=== PATIENT | male | born 1995 | race Hispanic/Latino ===

== ENCOUNTER 2019-06-27 23:47 | Inpatient (IN) | payer SELFPAY ==
[2019-06-27] MEDS ORDERED: Ketamine 50 MG/ML (10ML VIAL) ONE (23:52)
[2019-06-28] MEDS ORDERED: Sodium Bicarb 50 MEQ/50 ML VIAL ONE (00:19)
[2019-06-28 00:31] LABS: #Lymphocytes 1.3 thou/uL (1.20-3.40); #Monocytes 0.5 thou/uL (0.11-0.59); #Neutrophils 11.9 thou/uL (1.40-6.50); %Basophils 0.3 % (0.0-1.0); %Eosinophils 0.2 % (0.0-10.0); %Lymphocytes 9.1 % (21.0-51.0); %Monocytes 3.8 % (0.0-10.0); %Neutrophils 86.7 % (42.0-75.0); Hemoglobin 14.7 g/dL (14.0-18.0); Mean Corpuscular HGB CONC 34.7 g/dL (32.0-36.0); Mean Corpuscular Hemoglobin 32.2 pg (27.0-31.0); Mean Corpuscular Volume 92.8 fL (78.0-98.0); Mean Platelet Volume 8.6 fL (7.4-10.4); Platelet Count 292 thou/uL (130-400); RBC Distribution Width 11.8 % (11.5-14.5); Red Blood Cell (RBC) Count 4.55 mill/uL (4.70-6.10); White Blood Cell (WBC) Count 13.8 thou/uL (4.8-10.8)
[2019-06-28 00:50] LABS: Acetaminophen Less than 6.0 mcg/mL (10.0-30.0); Alcohol Less than 10 mg/dL (Less than 10); CK (CPK) 197 U/L (30-200); Magnesium 1.9 mg/dL (1.6-2.6); Salicylate Less than 8.0 mg/dL (15.0-30.0)
[2019-06-28 00:51] LABS: ALT (SGPT) 36 U/L (8-55); AST (SGOT) 16 U/L (5-34); Albumin 4.1 g/dL (3.5-5.0); Alkaline Phosphatase 57 U/L (40-110); Anion Gap 10 mmol/L (10-20); BUN (Urea Nitrogen) 17 mg/dL (8.9-20.6); Bilirubin, Total 0.4 mg/dL (0.2-1.2); Calc. Creatinine Clearance 0 mL/min (70-130); Calcium 8.2 mg/dL (7.8-10.44); Carbon Dioxide 26 mmol/L (22-29); Chloride 109 mmol/L (98-107); Estimated GFR-MDRD Greater than 90; Globulin 2.3 g/dL (2.4-3.5); Glucose 98 mg/dL (70-105); Lipase 14 U/L (8-78); Protein, Total 6.4 g/dL (6.0-8.3); Sodium 141 mmol/L (136-145)
[2019-06-28 00:56] LABS: Bilirubin Negative (Negative); Blood, Urine Negative (Negative); Clarity Clear (Clear); Glucose, Urine (Dipstick) Normal (Negative); Leukocyte Negative Leu/uL (Negative); Nitrite Negative (Negative); Protein, Urine (Dipstick) Negative (Neg-Trace); Urobilinogen Normal mg/dL (Less than 2)
[2019-06-28 01:04] LABS: Medtox Reader # READER 4; Phencyclidine (PCP) Not Detected (NotDetected); THC/Cannabinoid Screen Not Detected (NotDetected)
[2019-06-28 01:05] LABS: Amphetamine Not Detected (NotDetected); Barbiturates Screen Not Detected (NotDetected); Benzodiazepine Screen Not Detected (NotDetected); Cocaine Metabolite Screen Detected (NotDetected); Medtox Control Line Valid? VALID (VALID); Methadone Not Detected (NotDetected); Methamphetamine Not Detected (NotDetected); Opiate Screen Not Detected (NotDetected); Oxycodone Screen Not Detected (NotDetected); Tricyclic Screen Detected (NotDetected)
[2019-06-28 01:19] LABS: CKMB 5.1 ng/mL (0-6.6)
[2019-06-28] MEDS ORDERED: Aspirin 300 MG Suppository ONE (01:42)
[2019-06-28 03:13] VITALS: BMI 34.0
[2019-06-28] MEDS ORDERED: Acetaminophen 650 MG Suppository PR PRN (03:29)
[2019-06-28] MEDS ORDERED: Acetaminophen 325 MG TAB PO PRN (03:29)
[2019-06-28] MEDS ORDERED: Bisacodyl 5 MG TAB PO PRN (03:29)
--- NOTE | 2019-06-28 04:02 | HP ---
PRIMARY CARE PROVIDER: Unknown, city call. CHIEF COMPLAINT: Overdose. HISTORY OF PRESENT ILLNESS: Mr. Jaden Junior is a 24-year-old gentleman, who was seen at [facility] on June 28, 2019. He is currently unable to provide any significant history. Collateral history was obtained from review of medical records and discussion with emergency room physician. The patient reportedly got into an argument at home and swallowed an unknown number of amitriptyline tablets. The patient was combative in the emergency room and received ketamine. He is currently lethargic, waking up, but falling asleep. He was also found to have an abnormal troponin level and positive urine drug screen for tricyclics and cocaine metabolites. REVIEW OF SYSTEMS: Could not be completed. PAST MEDICAL HISTORY: None. PAST SURGICAL HISTORY: None. SOCIAL HISTORY: Emergency room physician reports that the patient drinks alcohol on a social basis and is a former drug user. No details regarding tobacco use. FAMILY HISTORY: Could not be obtained. ALLERGIES: NO KNOWN DRUG ALLERGIES. CURRENT MEDICATIONS: None. PHYSICAL EXAMINATION: GENERAL: On examination, Mr. Jaden Junior is sleepy, but arousable, not in acute distress. VITAL SIGNS: Blood pressure is 102/74, pulse 112, respiratory rate 16, and oxygen saturation 97% on room air. He is afebrile. He is obese, with a BMI of 34. HEENT: Eyes, no scleral icterus, no conjunctival pallor. ENT: Moist mucosal membranes. NECK: Supple, nontender, trachea is midline. RESPIRATORY: Accessory muscles of breathing are not active. Chest wall movements are symmetric bilaterally. LUNGS: Clear to auscultation without wheeze, rhonchi, or crepitations. CARDIOVASCULAR: S1 and S2 are heard, regular. Peripheral pulses palpable. ABDOMEN: Soft, nontender, bowel sounds are heard. NEUROLOGIC: Full neurologic examination was not possible secondary to patient's noncooperation. No facial droop. Deep tendon reflexes 2+. MUSCULOSKELETAL: The patient is moving all 4 extremities. SKIN: No rashes. LYMPHATIC: No cervical lymphadenopathy. PSYCHIATRIC: Unable to assess mood, affect, or orientation to person, place, or time. LABORATORY DATA: Mr. Jaden Junior's labs and investigations were reviewed. 12-lead electrocardiogram shows sinus tachycardia, QRS duration is [address] scan of the brain did not show any acute intracranial abnormality. He has mild paranasal sinus mucosal changes without air-fluid levels. Chest x-ray does not show any pulmonary infiltrates. He has leukocytosis with 13,800 white cells, of which 86.7% are neutrophils. Hemoglobin and platelet count are normal. Sodium and potassium are normal. LFTs are unremarkable. Creatinine is normal. CK and TSH are normal. Magnesium is normal. Ammonia level is normal. Troponin I is in the indeterminate range at 0.188. Urinalysis is positive for ketones, negative for nitrite and leukocyte esterase. Urine toxicology screen is positive for tricyclics and cocaine metabolites. ASSESSMENT AND PLAN: Mr. Stanley is a 24-year-old gentleman, who was seen at [facility] on June 28, 2019. His problem list includes: 1. Drug overdose: Mr. Jaden Junior has overdosed on amitriptyline. [facility] Control [facility] has been notified by emergency room. He received sodium bicarbonate intravenously with improvement in QRS interval. He will be admitted to monitoring specialist and continued on intravenous fluids. Further management depending on how he does over the next few hours. 2. Elevated troponin: Etiology is unclear, could be related to cocaine use. We will recheck a troponin level. 3. Cocaine use: The patient to be counseled regarding recreational drug cessation when more awake. LEVEL OF RISK: Moderate. LEVEL OF COMPLEXITY: Moderate. Job ID: [id number]
[2019-06-28] MEDS: Sodium Chloride 0.9% 1,000 ML IV SCH ×3 (04:03→23:08)
[2019-06-28 06:20] LABS: #Basophils 0.1 thou/uL (0.0-0.2); #Eosinphils 0.1 thou/uL (0.0-0.7); #Lymphocytes 1.9 thou/uL (1.20-3.40); #Monocytes 0.7 thou/uL (0.11-0.59); #Neutrophils 10.4 thou/uL (1.40-6.50); %Basophils 0.5 % (0.0-1.0); %Eosinophils 0.5 % (0.0-10.0); %Lymphocytes 14.3 % (21.0-51.0); %Monocytes 5.5 % (0.0-10.0); %Neutrophils 79.2 % (42.0-75.0); Hemoglobin 14.9 g/dL (14.0-18.0); Mean Corpuscular HGB CONC 33.4 g/dL (32.0-36.0); Mean Corpuscular Hemoglobin 30.9 pg (27.0-31.0); Mean Corpuscular Volume 92.2 fL (78.0-98.0); Mean Platelet Volume 8.7 fL (7.4-10.4); Platelet Count 285 thou/uL (130-400); RBC Distribution Width 11.8 % (11.5-14.5); Red Blood Cell (RBC) Count 4.84 mill/uL (4.70-6.10); White Blood Cell (WBC) Count 13.1 thou/uL (4.8-10.8)
[2019-06-28 06:36] LABS: Anion Gap 11 mmol/L (10-20); BUN (Urea Nitrogen) 13 mg/dL (8.9-20.6); Calc. Creatinine Clearance 217 mL/min (70-130); Calcium 8.4 mg/dL (7.8-10.44); Carbon Dioxide 25 mmol/L (22-29); Chloride 111 mmol/L (98-107); Estimated GFR-MDRD Greater than 90; Glucose 109 mg/dL (70-105); Potassium 3.9 mmol/L (3.5-5.1); Sodium 143 mmol/L (136-145)
[2019-06-28 06:43] LABS: Troponin I 0.195 ng/mL (< 0.028)
--- NOTE | 2019-06-28 07:38 | RAD ---
EXAM: Single view of the chest HISTORY: Altered mental status COMPARISON: None FINDINGS: Single view of the chest shows a normal sized cardiomediastinal silhouette. Linear atelect asis is seen in the right lung base. There is no evidence of consolidation, mass, or pleural effusion. The bones are unremarkable. IMPRESSION: No evidence of acute cardiopulmonary disease
--- NOTE | 2019-06-28 08:06 | CT ---
PRELIMINARY REPORT/[facility]/EMERGENCY AFTER HOURS PROCEDURE: CT BRAIN WO CON History: M24 presents to ED for overdose, 15 mins prior to EMS arrival. EMS reports pt was at [place], was smoking marijuana, got into argument, then might have intentionally overdosed. Unsure but believe pt took Amitriptyline; EMS reports bottle was still 3/4 full, maybe took about 10 Comparison: None. Findings: Reyes-white interface is preserved throughout. No sulcal effacement. No evidence of intracranial hemorrhage, mass effect or midline shift. No hydrocephalus or extra-axial fluid collection. Calvarium intact. No focal scalp hematoma. Orbits and mastoid air cells are unremarkable. Mild adenoidal tissue prominence. Trace mucosal thickening in the maxillary and ethmoid sinuses. No air-fluid levels. Impression: 1. No acute intracranial abnormality identified. 2. Mild paranasal sinus mucosal changes without air-fluid levels. ELECTRONICALLY SIGNED BY: Liu Hui DO Jun 28, 2019 1:07:52 AM CONCRETE INSPECTOR This report is intended for review by the ordering physician only, in accordance of law. If you recei ve this report in error, please call [facility] at [phone]. FINAL REPORT EMERGENT AFTER HOURS CT OF THE BRAIN WITHOUT CONTRAST: FINDINGS/IMPRESSION: I agree with the findings and impression given in the preliminary report per [facility] physici an. No evidence of acute intracranial abnormality. POS: [facility] [place]
[2019-06-28] MEDS ORDERED: FLU VACC QS2019-20(6MOS UP)/PF 60 MCG/0.5 ML SYRINGE IM ONE (09:00)
[2019-06-28] MEDS: Enoxaparin Sodium 40 MG/0.4 ML SYRINGE SC SCH (09:21)
[2019-06-29] MEDS: Enoxaparin Sodium 40 MG/0.4 ML SYRINGE SC SCH (07:55)
[2019-06-29] MEDS: Sodium Chloride 0.9% 1,000 ML IV SCH (09:25)
--- NOTE | 2019-06-29 10:02 | PDOC.HOSPP ---
- Subjective Encounter Date: 06/29/19 Encounter Time: 10:00 Subjective: no overnight events. This morning, feels well and claims to be at baseline. - Objective Vital Signs & Weight: Vital Signs (12 hours) Temp Pulse Resp BP Pulse Ox 06/29/19 07:51 99.1 F 83 16 123/73 97 06/29/19 04:00 98.0 F 82 20 117/64 98 Weight Admit Weight 210 lb 6.4 oz Weight 212 lb 6.4 oz I&O: 06/28/19 06/29/19 06/30/19 06:59 06:59 06:59 Intake Total 1200 Output Total 1000 Balance 200 Result Diagrams: 06/28/19 06:12 06/28/19 06:12 Radiology Reviewed by me: Yes EKG Reviewed by me: Yes Hospitalist ROS - Review of Systems Constitutional: denies: fever, chills, sweats, weakness, malaise, other Respiratory: denies: cough, dry, shortness of breath, hemoptysis, SOB with excertion, pleuritic pain, sputum, wheezing, other Cardiovascular: denies: chest pain, palpitations, orthopnea, paroxysmal noc. dyspnea, edema, light headedness, other Gastrointestinal: denies: nausea, vomiting, abdominal pain, diarrhea, constipation, melena, hematochezia, other Genitourinary: denies: dysuria, frequency, incontinence, hematuria, retention, other - Medication Medications: Active Medications Generic Name Dose Route Start Last Admin Trade Name Freq PRN Reason Stop Dose Admin Acetaminophen 650 mg 06/28/19 03:29 06/28/19 16:59 Tylenol PO 650 mg Q4H PRN Administration Headache/Fever/Mild Pain (1-3) Enoxaparin Sodium 40 mg 06/28/19 09:00 06/29/19 07:55 Lovenox SC 40 mg 0900 RAGHAV Administration Sodium Chloride 1,000 mls @ 100 mls/hr 06/28/19 03:30 06/29/19 09:25 Normal Saline 0.9% IV 1,000 mls .Q10H RAGHAV Administration - Exam General Appearance: NAD, awake alert Eye: PERRL, anicteric sclera Heart: RRR, no murmur, no gallops, no rubs, normal peripheral pulses Respiratory: CTAB, no wheezes, no rales, no ronchi, normal chest expansion, no tachypnea, normal percussion Gastrointestinal: soft, non-tender, non-distended, normal bowel sounds, no palpable masses, no hepatomegaly, no splenomegaly, no bruit Neurological: cranial nerve grossly intact, normal sensation to touch, no weakness, no focal deficits, no new deficit Psychiatric: normal affect, normal behavior, A&O x 3
[2019-06-30 08:33] VITALS: TEMP 98.5
[2019-06-30] MEDS: Enoxaparin Sodium 40 MG/0.4 ML SYRINGE SC SCH (09:43)
[2019-06-30 16:08] VITALS: BP 124/77
--- NOTE | 2019-07-01 15:01 | DIS ---
DATE OF ADMISSION: 06/28/2019 DATE OF DISCHARGE: 06/30/2019 HOSPITAL COURSE: Mr. Stanley is a 24-year-old male with no medical history, who presents to the ED after a suicidal attempt. He had a fight with his girlfriend and reportedly ingested 10 pills of amitriptyline on presentation to the ED. He was found to be tachycardic with and EKG showed borderline elevated QRS duration, so he was admitted to the telemetry floor for further observation. During his stay on telemetry floor, he was somnolent but arousable and mildly agitated. There were no additional signs of EKG abnormalities and the patient remained hemodynamically stable throughout his stay. PHYSICAL EXAMINATION: VITAL SIGNS: On the day of discharge, vital signs were unremarkable. GENERAL: He was easily arousable, in no apparent distress and oriented x3. CARDIAC: Regular rate and rhythm. No murmurs. No gallops. LUNGS: Clear to auscultation bilaterally. No wheezes, rales, or rhonchi. PSYCHIATRIC: Somnolent but easily arousable, improved compared to the day of admission, mildly agitated at times. ASSESSMENT AND PLAN: Mr. Stanley is a 24-year-old male, who presented for suicidal attempt by overdosing on amitriptyline. He was admitted to the telemetry floor due to mild EKG changes that were consistent with amitriptyline toxicity but during his inpatient stay, he remained hemodynamically stable and EKG changes shortly resolved. He was discharged for further psychiatric observation. Job ID: [id number]
== END 2019-06-30 17:40 | disposition short-term general hospital (02) | DRG 917 ==
LOC: ERS 23:47 → 2NO 06-28 01:53
PROVIDERS: ADMIT Internal Medicine; ATTEND Internal Medicine
DX: T43.012A Poisoning by tricyclic antidepressants, intentional self-harm, initial encounter (principal); R40.2122 Coma scale, eyes open, to pain, at arrival to emergency department; F14.10 Cocaine abuse, uncomplicated; E66.9 Obesity, unspecified; Z68.34 Body mass index [BMI] 34.0-34.9, adult; Y92.009 Unspecified place in unspecified non-institutional (private) residence as the place of occurrence of the external cause; R40.2352 Coma scale, best motor response, localizes pain, at arrival to emergency department
CPT/HCPCS: 36415; 70450; 71045; 80053; 80306; 80307; 81003; 82140; 82550; 82553; 83690; 83735; 84443; 84484; 85025; 87040; 87149; 90471; 90686; 93005; G0008; J1650